=== PATIENT | male | born 1970 ===

== ENCOUNTER 2016-08-27 06:09 | Observation (INO) | payer OTHER ==
[~2016-08-27] VITALS: Ht 182.9 cm; Wt 72.1 kg
[2016-08-27] VITALS (21 sets, daily range): BP systolic 58–132; BP diastolic 70–91
[2016-08-27] MEDS ORDERED: NORCO 5-325 TA1 EAC1 ORAL (07:04)
[2016-08-27] MEDS ORDERED: Thrombin 5000 units TOPIC ONE (07:06)
[2016-08-27] MEDS ORDERED: Thrombin 5000 units spray kit TOPIC ONE (07:06)
[2016-08-27] MEDS ORDERED: Bupivacaine w/Epi 0.5% 30ml Vial INJ ONE (07:06)
[2016-08-27] MEDS ORDERED: Bacitracin 50000 Units Vial ONE (07:07)
[2016-08-27] MEDS ORDERED: Gelfoam Absorbable 1gm powder pkt TOPIC ONE (07:07)
[2016-08-27] MEDS ORDERED: Zemuron 50mg/5ml Inj IV ONE (07:30)
[2016-08-27] MEDS ORDERED: Propofol 10mg/ml 100ml btl IV ONE (07:30)
[2016-08-27] MEDS ORDERED: fentaNYL 250mcg/5ml ONE (07:30)
[2016-08-27] MEDS ORDERED: Midazolam 2mg/2ml Inj ONE (07:30)
[2016-08-27] MEDS ORDERED: Sterile Water Irrig 1000ml IRRIG ONE (07:30)
[2016-08-27] MEDS ORDERED: LR 1000ml ONE (07:30)
[2016-08-27] MEDS ORDERED: Neostigmine 1mg/ml 10ml Inj ONE (07:30)
[2016-08-27] MEDS ORDERED: NS Irrig 1000ml ONE (07:30)
[2016-08-27] MEDS ORDERED: Dexamethasone 4mg/ml vial ONE (07:30)
[2016-08-27] MEDS ORDERED: Metoclopramide 10mg/2ml Inj ONE (07:30)
[2016-08-27] MEDS ORDERED: Lidocaine 1% MPF 10mg/ml 5ml ONE (07:30)
[2016-08-27] MEDS ORDERED: LR 1000ml 1,000 ML IVLG SCH (08:33)
--- NOTE | 2016-08-27 08:33 | Anethesia Preoperative Eval ---
Anesthesia Pre-op PMH/ROS General Date of Evaluation: Aug 27, 2016 Anesthesiologist: River ASA Score: ASA 1 Mallampati Score Class I : Soft palate, uvula, fauces, pillars visible Class II: Soft palate, uvula, fauces visible Class III: Soft palate, base of uvula visible Class IV: Only hard plate visible Mallampati Classification: Class I Surgeon: Gabriel Diagnosis: Lumbar disc herniation L4-S1 Surgical Procedure: Posterior left L4-S1 lumbar decompression Anesthesia History: none Family History: no anesthesia problems Allergies: Coded Allergies: No Known Allergies (Unverified , 08/22/16) Medications: see eMAR Past Medical History Cardiovascular: Denies: CAD, HTN, OR, arrhythmia, other, valve dz Pulmonary: Denies: COPD, BETI, asthma, other Gastrointestinal/Genitourinary: Denies: CRI, ESRD, GERD, other Neurologic/Psychiatric: Denies: CVA, TIA, dementia, depression/anxiety, other Endocrine: Denies: DM, hypothyroidism, other, steroids HEENT: Denies: [place] (L), [place] (R), cataract (L), cataract (R), glaucoma, other Hematology/Immune: Denies: DVT, anemia, bleeding disorder, other Musculoskeletal/Integumentary: Denies: DDD, DJD, OA, RA, edema, other PSxH Narrative: Right shoulder sx Anesthesia Pre-op Phys. Exam Physician Exam Last Vital Signs Date Time Temp Pulse Resp B/P Pulse Ox O2 Delivery O2 Flow Rate FiO2 08/27/16 07:07 97.0 88 20 121/87 Room Air Constitutional: NAD Cardiovascular: RRR Respiratory: CTA Airway Exam Mallampati Score: Class I MO: full Neck: limitted range of motion TMD: >3FB ROM: limited Teeth: intact, other - large, protruding Anesthesia Pre-op A/P Labs see chart Studies Pre-op Studies: EKG - sr Risk Assessment & Plan Assessment: ASA I Plan: GA-ETT Status Change Before Surgery: No Pre-Antibiotics Drug: Ancef 2g Given Within 1 Hr of Incision: Yes Time Given: 08:00 MARYAM URBAN M.D. Aug 27, 2016 08:32
[2016-08-27] MEDS ORDERED: Bupivacaine 0.5% Inj 30 ml vial INJ ONE (08:40)
[2016-08-27] MEDS ORDERED: Isovue-M 300 15ml INJ ONE (08:40)
[2016-08-27] MEDS ORDERED: LORazepam Inj 2mg/ml 1ml IV PRN (08:45)
[2016-08-27] MEDS ORDERED: fentaNYL 100 mcg/2 mL IV PRN (08:45)
[2016-08-27] MEDS ORDERED: Hydromorphone 0.5mg/0.5ml inj IVP PRN (08:45)
[2016-08-27] MEDS ORDERED: Labetalol 5mg/ml 20ml vial IV PRN (08:45)
[2016-08-27] MEDS ORDERED: Midazolam 2mg/2ml Inj IVP PRN (08:45)
[2016-08-27] MEDS ORDERED: DiphenhydrAMINE 50mg/ml Inj IVP PRN (08:45)
[2016-08-27] MEDS ORDERED: Metoclopramide 10mg/2ml Inj IVP PRN (08:45)
[2016-08-27] MEDS ORDERED: Bupivacaine 0.25% Inj 30ml INJ ONE (10:14)
--- NOTE | 2016-08-27 11:08 | Pre-Procedure Note/Attestation ---
Pre-Procedure Note/Attestation Complete Prior to Procedure Planned Procedure: left Indications for Procedure Pre-Operative Diagnosis: L4-S1 disc hernia. Lat recess stenosis Attestation I attest that I discussed the nature of the procedure; its benefits; risks and complications; and alternatives (and the risks and benefits of such alternatives ), prior to the procedure, with the patient (or the patient's legal development representative). I attest that, if there was a reasonable possibility of needing a blood transfusion, the patient (or the patient's legal development representative) was given the [facility] standardized written summary, pursuant to the Santiago Errol Blood Safety Act ([place] Health and Safety Code # 1645, as amended). I attest that I re-evaluated the patient just prior to the surgery and that there has been no change in the patient's H&P, except as documented below: DANILO PICHARDO Aug 27, 2016 11:08
--- NOTE | 2016-08-27 11:08 | Brief Operative Note ---
Immediate Post Operative Note Operative Note Pre-op Diagnosis: L4-S1 disc hernia. Lat recess stenosis Procedure: Left L4-5 and L5-S1 decompression and discecotmy Left L4-5 and L5-S1 Far lateral discectomy Post-op Diagnosis: Same Post-op Diagnosis: same as pre-op Findings: consistent w/pre-op dx studies Surgeon: Angel Rios Prototype Fabricator: Peter Monroy Anesthesia: general Specimen: none Complications: none Condition: stable Estimated Blood Loss: minimal Drains: hemovac Implant(s) used?: DANILO Perry Aug 27, 2016 11:08
--- NOTE | 2016-08-27 11:29 | Immediate Post-Op Evaluation ---
Immediate Post-Op Evalulation Immediate Post-Op Evalulation Procedure: Posterior left L4-S1 lumbar decompression Date of Evaluation: Aug 27, 2016 Time of Evaluation: 11:28 IV Fluids: 1.7L Blood Products: 0 Estimated Blood Loss: 100 Urinary Output: 500 Blood Pressure Systolic: 111 Blood Pressure Diastolic: 74 Pulse Rate: 85 Respiratory Rate: 15 O2 Sat by Pulse Oximetry: 100 Temperature (Fahrenheit): 98 Pain Score (1-10): 0 Nausea: No Vomiting: No Complications 0 Patient Status: awake, reacts, patent, none Hydration Status: adequate Drug: Ancef 2g Given Within 1 Hr of Incision: Yes Time Given: 08:00 MARYAM URBAN M.D. Aug 27, 2016 11:29
[2016-08-27] MEDS ORDERED: Norco 5mg/325mg tab ORAL PRN (12:00)
[2016-08-27] MEDS ORDERED: Norco 7.5mg/325mg tab ORAL PRN ×2 (12:00)
[2016-08-27] MEDS ORDERED: Morphine Sulfate 2mg/ml Inj SUBQ PRN (12:00)
[2016-08-27] MEDS ORDERED: Norco 10mg/325mg tab ORAL PRN (13:15)
[2016-08-27] MEDS ORDERED: LORazepam 0.5mg tab ORAL PRN (13:15)
--- NOTE | 2016-08-27 16:56 | Diagnostic Imaging Report ---
Indication: PAIN, intraoperative Technique: Digital intraoperative images Comparison: None Findings: Intraoperative images demonstrate surgical tools posterior to the L5 vertebral body, subsequently a surgical tool posterior to the L5-S1 disc. Impression: Intraoperative imaging, as described
[2016-08-27] MEDS: ceFAZolin sod 1 GM in D5W 55 ML IV SCH (17:12)
[2016-08-27] MEDS: Docusate 100mg tablet ORAL SCH (17:13)
[2016-08-27] MEDS: NS w/KCl 20mEq 1,000 ML IV SCH ×2 (17:13→22:30)
[2016-08-27] MEDS: Hydromorphone 0.5mg/0.5ml inj IVP PRN ×3 (18:32→23:08)
[2016-08-28] MEDS: ceFAZolin sod 1 GM in D5W 55 ML IV SCH ×2 (02:02→08:44)
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
[2016-08-28] MEDS: Hydromorphone 0.5mg/0.5ml inj IVP PRN ×6 (03:09→17:54)
[2016-08-28 04:00] VITALS: BP 126/77
--- NOTE | 2016-08-28 04:28 | Operative Note - Dictated ---
DATE OF OPERATION: 08/27/2016 PREOPERATIVE DIAGNOSIS: L4-L5 and L5-S1 disk herniation. POSTOPERATIVE DIAGNOSIS: L4-L5 and L5-S1 disk herniation. PROCEDURES: 1. Left L4-L5 decompression and medial facetectomy. 2. Left L4-L5 lateral discectomy. 3. Left L5-S1 decompression and medial facetectomy. 4. Left L5-S1 central discectomy. 5. Left L5-S1 far lateral discectomy and decompression. 6. Left L5 foraminotomy. 7. Left S1 foraminotomy. 8. SSEP, upper and lower extremities for lyy-dpo-s-half hours. 9. Motor-evoked potential upper and lower extremities for evw-kcc-o-half hours. 10. Use of intraoperative fluoroscopy for hff-nlr-e-half hours. 11. Interpretation of x-ray of the lumbar spine x4. 12. Interpretation of MRI of the lumbar spine intraoperatively. 13. Use of intraoperative microscope. 14. Microscopic plastic closure of the wound 2 cm in length. 15. Epidurogram using epidural catheter and Isovue 1 mL. 16. Application of epidural block using 100 mcg of Fentanyl and 0.25% Marcaine 4 mL after which the catheter was removed. SURGEON: Doc Rios M.D. LAY BROTHER SURGEON: Peter Jason M.D. ANESTHESIA: General. COMPLICATIONS: None. CONDITION: Transfer to recovery room under stable condition. INDICATION FOR PROCEDURE: The patient is a 46-year-old gentleman, who suffered from immense pain extending to the left lower extremity, unable to be controlled on any conservative treatment. He was offered surgery after MRI demonstrated disk herniation at L4-L5 and L5-S1 with lateral stenosis and foraminal disk herniation at both of these levels, more on the left side. The patient understood the risks and benefits of surgery, which include, but not limited to infection, bleeding, stroke, , damage to surrounding structures, need for future operative procedures, no improvement of symptoms, worsening of symptoms, other unfortunate risks have been explained extensively. The patient understood and signed the consent form and proceeded to surgery. DESCRIPTION OF PROCEDURE: After informed consent was obtained, the patient was taken to the operative room where he was placed under general anesthesia and intubation. The area of interest was shaved, prepped, and draped. We inserted a spinal needle at the level of L4-L5 and confirmed the position using a fluoroscopy. The midline incision was planned and injected with 0.5% with epinephrine and at this point, made an incision using a #10 blade knife exposing the left side of the midline of L4, L5, and S1. We confirmed the position using a fluoroscopy couple of time. Microscope was brought in. The laminotomy of L5 and the top of S1 was performed using a combination of drill and Kerrison. Ligamentum flavum was elevated and medial facetectomy was performed extending the dissection to the lateral aspect of the dura and nerve and we followed the L5 nerve root into the foramen. The adhesions were broken up around the L5 nerve root and mobilized. There was disk fragment underneath of L5 nerve root and the dura centrally and also palpable into the lateral aspect of the disk into the foramen. Annulotomy was performed disk space fragments were removed from within the disk space. There were a lot of torn up features that just came up with irrigation and then the central disk was removed using a combination of pituitary and Salvador. At this point, inside the disc was irrigated and we washed out all the loose features. The signals improved especially at the level of L5 and also at the level of S1 where initially we saw some delaying latency bilaterally and both sides improved and there was some improvement in the L5 as well on both sides. At this point, we turned our attention to the L4-L5. We confirmed the position again on the left side. The laminotomy and L4 and top of L5 was performed as well as the foraminotomy of L5. Ligamentum flavum was removed and we followed the dura all the way due to the compression of the lateral recess to the pedicle of L5. At this point, we performed the annulotomy and performed a far lateral diskectomy at the level of L4-L5 reaching way to the foramen and removing the disk fragments that were loged in there. At this point, we noted that the L4 signals that were not present at the beginning but After the decompression was done, both L4 was present and the signal was readdressed bilaterally. The L5 on the right demonstrated anterior reduction as 20% as well as the left side and there was a delay on the left side as well. These both came back to normal after the redundant decompression. The S1 were okay at the beginning, but there was a signal delay that came back to normal as well. Hemostasis was obtained. An epidurogram was performed. At this point, we obtained hemostasis. The epidural catheter was inserted and thread cephalad. After confirming the positioning of the Isovue, I gave the fentanyl and Marcaine combination, which is a total of 6 mL. The catheter was removed. Once again, we took ample amount of time stopping any bleeding from the muscles that were coming all of a sudden at the time when we removed the retractor. After complete hemostasis was obtained, in addition, we could put a drain behind and tunneled using 2-0 nylon. The Hemovac was attached to the suction cup that came with it after we closed the fracture. The fracture was closed with #0 Vicryl suture followed by interrupted 2-0 Vicryl sutures for the skin and then 4-0 Monocryl was used to close the skin under microscope and then Dermabond was applied. The patient tolerated the procedure well. He was transferred to recovery room under stable condition. Counts were correct and I immediately discussed the case with the family. Doc Rios M.D. DR: MAYANK JOB#: [id number] CC: GEOVANNA
[2016-08-28] MEDS: NS w/KCl 20mEq 1,000 ML IV SCH (06:24)
[2016-08-28 08:03] VITALS: BP 127/86
--- NOTE | 2016-08-28 08:12 | 48 Hour Post Anesthesia Eval ---
Post Anesthesia Evaluation Procedure: Posterior left L4-S1 lumbar decompression Date of Evaluation: Aug 28, 2016 Time of Evaluation: 07:10 Blood Pressure Systolic: 126 0: 77 Pulse Rate: 85 Respiratory Rate: 18 Temperature (Fahrenheit): 97.7 O2 Sat by Pulse Oximetry: 95 Airway: patent Nausea: No Vomiting: No Pain Intensity: 2 Hydration Status: adequate Cardiopulmonary Status: at baseline Mental Status/LOC: patient returned to baseline Post-Anesthesia Complications: 0 Follow-up care needed: N/A - further care as per primary team MARYAM URBAN M.D. Aug 28, 2016 08:12
[2016-08-28] MEDS: Docusate 100mg tablet ORAL SCH ×2 (08:32→18:00)
[2016-08-28 11:45] VITALS: BP 125/69
[2016-08-28] MEDS ORDERED: LORazepam 0.5mg tab ORAL ONE (16:21)
[2016-08-28 16:26] VITALS: BP 140/89
[2016-08-28] MEDS ORDERED: oxyCODONE 5mg IR tab ORAL PRN (16:45)
[2016-08-28] MEDS ORDERED: PERCOCET 10-321 EAC1 PO (17:16)
[2016-08-28] MEDS ORDERED: ATIVAN1 MG ORAL (17:17)
[2016-08-28] MEDS ORDERED: LORazepam 1mg tab ORAL PRN (19:15)
--- NOTE | 2016-08-28 22:38 | Progress Note ---
DATE: 08/28/2016 ACUTE PAIN MANAGEMENT PHYSICIAN PROGRESS NOTE MEDICATIONS: Medication administration record reviewed. Medications include Protonix and Colace; p.o. medications received, [place], Ativan, Dilaudid, Benadryl, Mylanta, and Zofran. LABORATORY STUDIES: No interval laboratory studies. OBJECTIVE: VITAL SIGNS: Pulse 77, afebrile, respiratory rate 21, and blood pressure 129/69. Oxygen saturation 95% on room air. I saw the patient at the bedside with the nurse, CARMENCITA Traore. I spent over 60 minutes in consultation. The nurse León interpreted Farsi for me with the patient. During my interview with the patient yesterday, the patient's was translating. The patient has been ambulating around the hospital room and voiding urine without problems. He has been advancing his diet. He has been using his breakthrough Dilaudid injections. He does seem to be somewhat anxious and after a detailed conversation with Yugmasi interpretation, the patient does admit to drinking hard alcohol (shots) socially with friends. I therefore believe a dose of oral Ativan will help. He does complain of significant tightness in the lumbar spine, which likely represents a postoperative spasm. The low-dose Dilaudid injections have been working well. The patient did ask if the oral Dilaudid tablets will be available. Certainly, I disagree that potent oral Dilaudid tablets should not be provided to this patient since the oral Dilaudid pills are very potent and not appropriate in the setting AA, narcotic-naive patient. The patient does have [place] and Percocet already at home, but does not believe that the strength he has at home will be adequate. He does not know the dose and I have asked the patient to contact his to determine the appropriate postoperative pain prescriptions to be provided. The patient denies any shortness of breath or chest pain. The patient has been advancing his diet without difficulty. The patient's will assist the patient with activities of daily living at home. The patient was turned to the left lateral decubitus position. Output from the indwelling lumbar spine drain catheter diminished significantly overnight. I examined the lumbar spine wound. I removed the dressing showing the incision line clean and dry with DuraBond sealant intact. I cut the suture holding in the indwelling lumbar spine drain catheter. Then, at end-expiration, with the Hemovac drain taken off of suction, I personally removed the indwelling lumbar spine drain catheter. The tip was intact. Alcohol swab was applied generously to drain hole site. Island border gauze dressing was then applied. There were no complications. Renaldo Cintron M.D. DR: MEHUL JOB#: [id number] CC:
--- NOTE | 2016-08-29 12:38 | Discharge Summary ---
DATE OF ADMISSION: 08/27/2016 DATE OF DISCHARGE: 08/28/2016 ATTENDING PHYSICIAN: Doc Rios M.D. CONSULTING PHYSICIAN: Renaldo Cintron M.D., Pain Management. HOSPITAL COURSE: The patient presented for elective surgery to his lumbar spine on 08/27/2016. The patient underwent eventful decompressive lumbar spine surgery by Dr. Rios without incident. After surgery, the patient was transferred from the operating room to the recovery room where the patient recovered well from anesthesia and surgery. He was transferred up to the orthopedic floor. . Vital signs were performed throughout the patient's hospitalization. The patient was advanced with ambulation and his diet. The patient's pain was adequately controlled on oral and parenteral pain medications. On postoperative day #1, the lumbar spine drain was removed and prescriptions were provided for outpatient usage. Dr. Rios discharged the patient home with followup orders to see him in his outpatient clinic per his office appointment schedule. There were no complications. Renaldo Cintron M.D. DR: SAVANAH JOB#: [id number] CC:
== END 2016-08-28 18:50 | disposition home or self-care (01) ==
LOC: SUR 06:09 → 3E 13:09 → UNDOADMOB 13:09 → UNDODISOB 08-28 18:50
DX: M51.27 Other intervertebral disc displacement, lumbosacral region (principal); G89.18 Other acute postprocedural pain; I25.10 Atherosclerotic heart disease of native coronary artery without angina pectoris; F17.200 Nicotine dependence, unspecified, uncomplicated
CPT/HCPCS: 36415; 63030; 63035; 72020; 76001; 86850; 86900; 86901; 87081; 96360; 96361; 96365; 96366; 96374; 96376; 97112; 97116; 97161; 97165; 97530; 97535; G0378; J0690; J1100; J1170; J2250; J2405; J2704; J2710; J2765; J3010; J3490; J7120; Q9967; 94003; 94150

== ENCOUNTER 2016-10-01 08:44 | Inpatient (IN) | payer OTHER ==
[2016-10-01] VITALS (11 sets, daily range): BP systolic 91–140; BP diastolic 46–93
[~2016-10-01] VITALS: Ht 182.9 cm; Wt 72.6 kg
[~2016-10-01 08:44] MED LIST: ATIVAN1 MG ORAL; NORCO 5-325 TA1 EAC1 ORAL; PERCOCET 10-321 EAC1 PO
[2016-10-01] MEDS ORDERED: LR 1000ml 1,000 ML IVLG SCH (10:51)
[2016-10-01] MEDS ORDERED: fentaNYL 100 mcg/2 mL IV PRN (11:00)
[2016-10-01] MEDS ORDERED: Oxycodone/Acetaminophen 5-325 ORAL PRN (11:00)
[2016-10-01] MEDS ORDERED: Meperidine 25mg/0.5ml Inj IV PRN (11:00)
[2016-10-01] MEDS ORDERED: Metoclopramide 10mg/2ml Inj IVP PRN (11:00)
[2016-10-01] MEDS ORDERED: Hydromorphone 0.5mg/0.5ml inj IVP PRN (11:00)
[2016-10-01] MEDS ORDERED: Ketorolac 30mg Inj IV PRN (11:00)
[2016-10-01] MEDS ORDERED: Norco 5mg/325mg tab ORAL PRN ×2 (11:00→15:30)
[2016-10-01] MEDS ORDERED: DiphenhydrAMINE 50mg/ml Inj IVP PRN (11:00)
[2016-10-01] MEDS ORDERED: Atropine Inj 1mg/10ml Syr IV PRN (11:00)
[2016-10-01] MEDS ORDERED: LORazepam Inj 2mg/ml 1ml IV PRN (11:00)
[2016-10-01] MEDS ORDERED: Norco 7.5mg/325mg tab ORAL PRN ×2 (11:00→18:00)
[2016-10-01] MEDS ORDERED: Ketorolac 60mg Inj IV PRN (11:00)
[2016-10-01] MEDS ORDERED: Midazolam 2mg/2ml Inj IVP PRN (11:00)
--- NOTE | 2016-10-01 11:14 | Pre-Procedure Note/Attestation ---
Pre-Procedure Note/Attestation Complete Prior to Procedure Planned Procedure: not applicable Procedure Narrative: C6-7 ACDF Indications for Procedure Pre-Operative Diagnosis: C6-7 disc hernia Attestation I attest that I discussed the nature of the procedure; its benefits; risks and complications; and alternatives (and the risks and benefits of such alternatives ), prior to the procedure, with the patient (or the patient's legal sales development representative). I attest that, if there was a reasonable possibility of needing a blood transfusion, the patient (or the patient's legal sales development representative) was given the [facility] standardized written summary, pursuant to the Santiago Errol Blood Safety Act ([place] Health and Safety Code # 1645, as amended). I attest that I re-evaluated the patient just prior to the surgery and that there has been no change in the patient's H&P, except as documented below: DANILO PICHARDO October 01, 2016 11:14
[2016-10-01] MEDS ORDERED: Propofol 10mg/ml 100ml btl IV ONE (11:30)
[2016-10-01] MEDS ORDERED: Thrombin 5000 units TOPIC ONE (11:49)
[2016-10-01] MEDS ORDERED: Bupivacaine w/Epi 0.5% 30ml Vial INJ ONE (11:49)
[2016-10-01] MEDS ORDERED: Bacitracin 50000 Units Vial ONE (11:50)
[2016-10-01] MEDS ORDERED: LR 1000ml ONE (11:50)
[2016-10-01] MEDS ORDERED: fentaNYL 250mcg/5ml ONE (11:50)
[2016-10-01] MEDS ORDERED: Dexamethasone 4mg/ml vial ONE (11:50)
[2016-10-01] MEDS ORDERED: Sterile Water Irrig 1000ml IRRIG ONE (11:50)
[2016-10-01] MEDS ORDERED: Neostigmine 1mg/ml 10ml Inj ONE (11:50)
[2016-10-01] MEDS ORDERED: Gelfoam Absorbable 1gm powder pkt TOPIC ONE (11:50)
[2016-10-01] MEDS ORDERED: fentaNYL 100 mcg/2 mL IV ONE (11:50)
[2016-10-01] MEDS ORDERED: Nimbex 2mg/ml Inj 10ML IVP ONE (11:50)
[2016-10-01] MEDS ORDERED: Glycopyrrolate 0.2mg/ml 1ml Vial ONE (11:50)
[2016-10-01] MEDS ORDERED: Lidocaine 1% Plain 30 ml INJ ONE (11:50)
[2016-10-01] MEDS ORDERED: Lidocaine 1% MPF 10mg/ml 5ml ONE (11:50)
[2016-10-01] MEDS ORDERED: NS Irrig 1000ml ONE (11:50)
[2016-10-01] MEDS ORDERED: Acetaminophen (Non formulary) 100 ML IV ONE (12:00)
[2016-10-01] MEDS ORDERED: Thrombin 5000 units spray kit TOPIC ONE (12:25)
[2016-10-01] MEDS ORDERED: Bupivacaine 0.5% Inj 30 ml vial INJ ONE (12:25)
--- NOTE | 2016-10-01 12:52 | Anethesia Preoperative Eval ---
Anesthesia Pre-op PMH/ROS General Date of Evaluation: October 01, 2016 Time of Evaluation: 11:52 Anesthesiologist: Ed ASA Score: ASA 1 Mallampati Score Class I : Soft palate, uvula, fauces, pillars visible Class II: Soft palate, uvula, fauces visible Class III: Soft palate, base of uvula visible Class IV: Only hard plate visible Mallampati Classification: Class I Surgeon: Gabriel Diagnosis: Neck Pain Surgical Procedure: ACDF C6-7 Anesthesia History: none Family History: no anesthesia problems Allergies: Coded Allergies: No Known Allergies (Unverified , 08/22/16) Medications: see eMAR Past Medical History PSxH Narrative: R Shoulder SX, Lumbar Spine SX Anesthesia Pre-op Phys. Exam Physician Exam Last Vital Signs Date Time Temp Pulse Resp B/P Pulse Ox O2 Delivery O2 Flow Rate FiO2 10/01/16 09:40 99.0 86 18 121/46 98 Room Air Constitutional: NAD Neurologic: CN 2-12 intact Cardiovascular: RRR Respiratory: CTA Gastrointestinal: S/NT/ND Airway Exam Mallampati Score: Class I MO: full ROM: limited Teeth: intact, other - CAPS Anesthesia Pre-op A/P Risk Assessment & Plan Assessment: ASA 1 Plan: GA, Glidescope, BIS Status Change Before Surgery: No Pre-Antibiotics Dru Grams Ancef IV Given Within 1 Hr of Incision: Yes Time Given: 12:11 Ochoa Ward MD October 01, 2016 12:52
--- NOTE | 2016-10-01 12:53 | Immediate Post-Op Evaluation ---
Immediate Post-Op Evalulation Immediate Post-Op Evalulation Procedure: ACDF C6-7 Date of Evaluation: October 01, 2016 Time of Evaluation: 15:32 IV Fluids: 900 LR Blood Products: 0 Estimated Blood Loss: 25 Urinary Output: 100 Blood Pressure Systolic: 131 Blood Pressure Diastolic: 90 Pulse Rate: 89 Respiratory Rate: 18 O2 Sat by Pulse Oximetry: 99 Temperature (Fahrenheit): 98.1 Pain Score (1-10): 3 Nausea: No Vomiting: No Complications 0 Patient Status: awake, reacts, patent, extubated, none Hydration Status: adequate Dru Grams Ancef IV Given Within 1 Hr of Incision: Yes Time Given: 12:11 Ochoa Wrad MD October 01, 2016 12:53
[2016-10-01] MEDS ORDERED: Muri-Lube ONE (13:25)
--- NOTE | 2016-10-01 15:42 | Brief Operative Note ---
Immediate Post Operative Note Operative Note Chief Complaint: Neck pain and radiculopathy Pre-op Diagnosis: C6-7 disc hernia Procedure: C6-7 ACDF Post-op Diagnosis: same Surgeon: Angel Pichardo Cafeteria Attendant: Estefani Oro Anesthesiologist: Ed Anesthesia: general Specimen: yes Complications: none Condition: stable Estimated Blood Loss: minimal Drains: none Implant(s) used?: Yes DANILO PICHARDO October 01, 2016 15:41
[2016-10-01] MEDS ORDERED: oxyCODONE 5mg IR tab ORAL PRN (17:45)
[2016-10-01] MEDS ORDERED: HYDROmorphone 1mg/ml Carpuject SUBQ PRN (17:45)
[2016-10-01] MEDS ORDERED: D5 1/2NS 1,000 ML IV SCH (18:00)
[2016-10-01] MEDS: Docusate 100mg/10ml Liq NG SCH (18:44)
[2016-10-01] MEDS ORDERED: Chloraseptic Spray 20mL Bottle ORAL PRN (19:00)
[2016-10-01] MEDS: LORazepam 0.5mg tab ORAL SCH (21:00)
[2016-10-01] MEDS: HYDROmorphone 1mg/ml Carpuject IVP PRN (21:15)
[2016-10-01] MEDS: ceFAZolin sod 1 GM in D5W 55 ML IV SCH (21:23)
[2016-10-02] VITALS: BP 109/59
[2016-10-02] MEDS: HYDROmorphone 1mg/ml Carpuject IVP PRN ×2 (01:18→08:13)
[2016-10-02 04:00] VITALS: BP 116/56
[2016-10-02] MEDS: ceFAZolin sod 1 GM in D5W 55 ML IV SCH (04:00)
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
[2016-10-02] MEDS ORDERED: Tamsulosin 0.4mg cap ORAL ONE (06:30)
--- NOTE | 2016-10-02 07:15 | Operative Note - Dictated ---
DATE OF OPERATION: 10/01/2016 PREOPERATIVE DIAGNOSIS: C6-C7 disk herniation. POSTOPERATIVE DIAGNOSIS: C6-C7 disk herniation. PROCEDURES: 1. C6-C7 diskectomy. 2. Bilateral C6-C7 foraminotomies for and fusion. 3. C6-C7 interbody fusion. 4. C6-C7 instrumentation. 5. C6-C7 placement of PEEK cage from [employer] measures 7 x 14 x 17 mm. 6. Use of Osteocel allograft for interbody fusion. 7. C6-C7 partial corpectomy. 8. Placement of [place] distractors for alignment and appropriate decompression. 9. Use of intraoperative microscope. 10. Microscopic plastic closure of wound 3 cm in length. 11. SSEP, upper and lower extremities for hxz-jwd-v-half hours. 12. Motor-evoked potential for upper and lower extremities for xre-tac-y-half hours. 13. Interpretation of MRI of the cervical spine intraoperatively. 14. Interpretation of x-ray of the cervical spine x10. 15. Use of intraoperative fluoroscopy for imj-cal-i-half hours. SURGEON: Doc Rios M.D. CLOCKMAKER SURGEON: Dr. Oro. ANESTHESIOLOGIST: Ochoa Ward M.D. COMPLICATIONS: None. CONDITION: Transfer to recovery room under stable condition. INDICATION FOR PROCEDURE: The patient is a 46-year-old gentleman with severe neck pain and disk herniation noted at the level of C6-C7. Please see the H and P for complete history. The patient understood the risks and benefits of surgery, which include, but not limited to infection, bleeding, stroke, , damage to surrounding structures, need for future operative procedures, no improvement of symptoms, worsening of symptoms, other unfortunate risks including pseudoarthrosis, adjacent level disease, damage to recurrent laryngeal nerve, have been explained to the patient extensively. The patient understood and signed the consent form and proceeded to surgery. DESCRIPTION OF PROCEDURE: After informed consent was obtained, the patient was taken to the operative room where he was placed under general anesthesia and intubation. SSEP and motor-evoked potentials were obtained at baseline before positioning, which remained stable throughout the positioning and procedure until being improved after the decompression. At this point, we prepared cervical spine and marked the cervical spine with a metal object. Fluoroscopy was used to ramiro the incision. After standard prep and draping, the incision was injected with 5 mL Marcaine with epinephrine. The incision was made using a #10 blade knife and was taken through platysma. This was opened sharply. The deep cervical fascia was dissected down to the prevertebral space. Longus colli muscles were elevated and we put a needle at the level of C6-C7. We confirmed the position using fluoroscopy. At this point, we placed the retractors over the longus colli muscles. [place] retractors were inserted and confirmed the position again with good position of [place]. At this point, annulotomy was using a #11 blade knife. Diskectomy was performed using combination of curette and Kerr[place]. Posterior bone was removed with high speed drill and underneath the bone and posterior longitudinal ligament there were acute disk fragments. There were large bilateral foramens more on the right than left, but bilaterally and also centrally right over the spinal cord. These fragments were removed. We then removed the entire portion of longitudinal ligament and followed the nerves in to the foramens and decompressed the nerves completely. At this point, again there was improvement in the signals of the nerves. We then proceeded to obtain hemostasis. The entire operation was obviously done under microscope. At this point, endplates were prepared using high speed drill and grasp. We placed the endplates and subsequently cage packed with Osteocel in the inner space. The C7 bone had been shaved significantly to accommodate with decompression, diskectomy as well as the cage. At this point, a 7 mm height x 14 x 17 mm dimension PEEK cage, which was packed with Osteocel was placed under fluoroscopy. Superior and inferior screws were freed after we put awl in and observed the trajectory under fluoroscopy. After fixing the cage with endplates, AP and lateral x-rays demonstrate good positioning. The findings correlated with MRI. At this point, while the signals remained stable we proceeded to closure. The platysma was closed using 2-0 running Vicryl followed interrupted 3-0 Vicryl for closure of the skin. Dermabond was applied. The patient was transferred to recovery room under stable condition moving all of his extremities with good strength and I immediately discussed the case with his waiting in the waiting area. Counts were correct. Minimal blood loss. Tooraj Gravori, M.D. DR: KATHY JOB#: [id number] CC:
--- NOTE | 2016-10-02 07:31 | Progress Note ---
DATE: 10/02/2016 ACUTE PAIN MANAGEMENT PHYSICIAN PROGRESS NOTE: MEDICATIONS: Medication administration record reviewed. Medications include Mylanta, Catapres, Benadryl, Colace, Dilaudid, Ativan, Zofran, oxycodone, Protonix, Chloraseptic, and Phenergan. LABORATORY STUDIES: No interval laboratory studies. VITAL SIGNS: Afebrile, pulse 65, respirations 18, blood pressure 116/56, and oxygen saturation 95% on room air. SUMMARY: I saw the patient. I spent over 60 minutes in consultation today. I saw the patient at the bedside and discussed with the surgeon, Dr. Rios along with the nurse, Beverley. Overnight, the patient has been swallowing and breathing well after his neck fusion surgery. He is moving all extremities x4 and has been moving in and out of bed. The patient has been ambulating out of bed. He appears neurologically intact. Soft collar remains in place. Neck dressing appears clean and dry. The patient has a good appetite with no nausea symptoms. Overnight, the patient accidentally removed his indwelling Maddox catheter. The patient has not had an urge to void urine yet, but this is approaching nearly 10 hours, since he has voided urine. We will continue to give him oral fluids. I have ordered a dose of Flomax to help with urinary flow, if he is not able to void urine in the next couple of hours. We will do a bladder scan if he has retained urine and treat accordingly. Yesterday, I provided the with prescription for Percocet and Ativan. The patient has been using Ativan chronically over the past month and has been responding well to the medication here in the hospital. He has used Dilaudid overnight for pain control and we will transition him over to oral Percocet and oxycodone today to help expedite his discharge planning. I did encourage continued use of incentive spirometer. I have asked the nurse to place Chloraseptic spray at the bedside for topical sore throat complaint. Renaldo Cintron M.D. DR: Amador JOB#: [id number] CC:
[2016-10-02 08:00] VITALS: BP 118/65
[2016-10-02] MEDS: LORazepam 0.5mg tab ORAL SCH (08:12)
[2016-10-02] MEDS: Docusate 100mg/10ml Liq NG SCH (08:12)
--- NOTE | 2016-10-02 10:08 | Diagnostic Imaging Report ---
Indication: PAIN, intraoperative Technique: Digital intraoperative images Comparison: None Findings: Intraoperative images demonstrate a surgical tool projected at the level of the anterior aspect of the C6-7 disc. Subsequent images document placement of anterior fusion hardware at this level. Impression: Intraoperative imaging, as described
[2016-10-02 12:00] VITALS: BP 109/60
[2016-10-02] MEDS ORDERED: ATIVAN1 MG ORAL (13:00)
[2016-10-02] MEDS ORDERED: PERCOCET 10-321 EACH ORAL (13:01)
[2016-10-02] MEDS ORDERED: Tubing IV Secondary IV ONE (13:27)
[2016-10-02] MEDS ORDERED: NS 275ml ONE (13:27)
--- NOTE | 2016-10-03 02:15 | Discharge Summary ---
DATE OF ADMISSION: 10/01/2016 DATE OF DISCHARGE: 10/02/2016 CONSULTING PHYSICIAN: Renaldo Cintron M.D., Pain Management. ADMISSION PHYSICIAN: Doc Rios M.D. ADMITTING DIAGNOSIS: Cervical spine disk disease. DISCHARGE DIAGNOSIS: Cervical spine disk disease status post anterior cervical spine fusion. HOSPITAL COURSE: The patient was admitted on 10/01/2016 for elective cervical spine fusion surgery. The patient underwent surgery without complications and was transferred from the operating room to the recovery room. The patient did well and is transferred from the recovery room to the orthopedic floor without incident. The patient was cared for overnight in the orthopedic unit. Serial vital signs with laboratory studies were monitored closely. The patient is advanced to diet and ambulation. Pain was well controlled and the patient was discharged home with his with a prescription for Percocet and Ativan. There were no complications. The patient will follow up in Dr. Rios's outpatient clinic for a surgical followup. Renaldo Cintron M.D. DR: JAVI JOB#: [id number] CC:
[2016-10-03 09:47] VITALS: BP 118/65
--- NOTE | 2016-10-03 09:47 | 48 Hour Post Anesthesia Eval ---
Post Anesthesia Evaluation Procedure: ACDF C6-7 Date of Evaluation: Oct 02, 2016 Time of Evaluation: 08:30 Blood Pressure Systolic: 118 0: 65 Pulse Rate: 65 Respiratory Rate: 20 Temperature (Fahrenheit): 97.1 O2 Sat by Pulse Oximetry: 98 Airway: patent Nausea: No Vomiting: No Pain Intensity: 2 Hydration Status: adequate Cardiopulmonary Status: at baseline Mental Status/LOC: patient returned to baseline Post-Anesthesia Complications: 0 Follow-up care needed: N/A - further care as per primary team MARYAM URBAN M.D. Oct 03, 2016 09:47
== END 2016-10-02 13:28 | disposition home or self-care (01) | DRG 473 ==
LOC: SUR 08:44 → 3E 16:42
PROC: 0RG10A0 Fusion of Cervical Vertebral Joint with Interbody Fusion Device, Anterior Approach, Anterior Column, Open Approach (ICD-10-PCS; principal; 2016-10-01 11:30)
PROC: 0RT30ZZ Resection of Cervical Vertebral Disc, Open Approach (ICD-10-PCS; principal; 2016-10-01 11:30)
DX: M50.223 Other cervical disc displacement at C6-C7 level (principal); F41.9 Anxiety disorder, unspecified
CPT/HCPCS: 72040; 76001; 87081; 94003; 94150; J2405; J2710